=== PATIENT | male | born 1955 | race Caucasian/White ===

== ENCOUNTER 2016-09-25 05:44 | Outpatient (CLI) | payer MEDICARE, OTHER ==
[~2016-09-25] VITALS: Ht 185.4 cm; Wt 134.8 kg
--- NOTE | ~2016-09-25 | CATH ---
Cardiac Diagnostic + PCI Report Demographics Patient Name ZAIDA Harrell Gender Male Date of 1955 Age 61 year(s) Patient Number [id number] Date of Study 09/25/2016 Visit Number [id number] Room Number G6[address] [place] [id number] Ht 185.42 cm Wt 133.7 kg Referring Augusta Tan MD Primary Physician Physician Performing Efstratiou Secondary Physician Physician Sai Alberto MD Diagnostic Efstr[facility]ou Assisting Physician Physician Sai Alberto MD Interventional Efstratiou Physician Staff Appraiser Physician Sai Alberto MD Findings and Conclusions Diagnostic Findings and Conclusion Severe RCA stenosis corresponding to nuclear defect. 20-40% lesions in remaining coronaries. Diagnostic Recommendations PCI to RCA. Interventional Findings and Conclusion Successful BANDAR to Mid RCA. Interventional Recommendations DAPT. Smoking cessation. Increase Statin intensity. Procedure Description The patient was brought to the diagnostic cardiac catheterization-EP laboratory in the fasting, non-sedated state. Informed consent was obtained in the written and verbal form after the risks and benefits were explained. The patient had no further questions and agreed to proceed. The planned puncture-incision site(s) were shaved and prepped with ChloraPrep and draped in the usual sterile manner. Conscious sedation, supplemental oxygen, and pain control medications were delivered by a registered nurse under physician guidance. Surface ECG rhythm, blood pressure measurement, and pulse oximetry were monitored throughout the procedure. Arterial access. The access site was infiltrated with lidocaine. The vessel was entered with the Seldinger technique. A sheath was advanced into the vessel and used for catheter placement. Selective left coronary angiography. A catheter was advanced into the left coronary vessel ostium under Fluoroscopic guidance. Contrast was injected by hand. Images were obtained in multiple projections. Selective right coronary angiography. A catheter was advanced into the right coronary vessel ostium under fluoroscopic guidance. Contrast was injected by hand. Images were obtained in multiple projections. Left heart catheterization. A catheter was advanced across the aortic valve to the left ventricle under fluoroscopic guidance. Resting hemodynamics were obtained. Stent Placement: A guiding catheter was used to intubate the vessel. A 0.14 wire was used to cross the lesion. A Drug Eluting Stent was placed. Post placement angiograms were performed. Arterial artery hemostasis was achieved. The patient was transferred to a regular nursing floor via cart accompanied by a nurse. The patient left the laboratory in stable condition. Diagnostic Cath Status: Elective Interventional Cath Status: Urgent Procedure Procedure Type Diagnostic procedure:Angiography:, Coronary Angios /[facility] PCI procedure:Drug Eluting Coronary Stent:, RCA Indications: Positive nuclear scan, Diabetes and Hypertension. The procedure was explained in detail to the patient. Risks, complications and alternative treatments were reviewed. Written consent was obtained. Medications Reviewed with Patient prior to Procedure. Angiographic Findings Dominance: Mixed Cardiac Arteries and Lesion Findings LMCA: Normal (0% Stenosis).patent LAD: Lesion on Mid LAD: Mid subsection.20% stenosis . Lesion on 1st Dia% stenosis . LCx: Lesion on 1st Ob Nerissa% stenosis . RCA: Lesion on Mid RCA: Mid subsection.80% stenosis 20 mm length reduced to 0%. Pre procedure ESTRELLA III flow was noted. Post Procedure ESTRELLA III flow was present. The guidewire cross was successful.The lesion was diagnosed as a moderate risk lesion.Culprit lesion. Treatment results:Interventional treatment was successful. Devices used - Whisper Wire .014 x 190. Number of passes: 1. - Emerge Balloon 3.0 x 15. 1 inflation(s) to a max pressure of: 14 irene. - Promus Premier 3.5 x 20 Stent. 1 inflation(s) to a max pressure of: 20 irene. Lesion on R PDA: 20% stenosis . Coronary Tree Procedure Data Procedure Date Date: 09/25/2016Start: 08:55 AMEnd: 09:44 AM Entry Locations - Retrograde Percutaneous access was performed through the Right Radial artery (Primary location). A 6 Fr sheath was inserted. Hemostasis was successfully obtained using Mechanical Compression. Closure Comments: Radial band placed by Tabatha Mayorga. 18 mls of air in band.. Procedure Medications Order and Administration + + +--------+-------+ !Time !Medication !Dosage !Route ! + + +--------+-------+ !09/25/2016 !Fentanyl !50 mcg !I.V. ! !08:41 AM ! ! ! ! + + +--------+-------+ 09/25/2016 !Versed !1 mg !I.V. ! !08:52 AM ! ! ! ! + + +--------+-------09/25/2016 !Oxygen !2 l/min !NC ! !08:56 AM ! ! ! ! + + +--------+-------09/25/2016 !PAE Radial Cocktail: Heparin 5000 units, ! !I.A. ! !08:58 AM !Nitroglycerin 200mcg, Verapamil 3 mg ! ! ! ! !(ACC_3) ! ! ! + + +--------+-------+ 09/25/2016 !Oxygen !4 l/min !NC ! !09:03 AM ! ! ! ! + + +--------+-------+ 09/25/2016 !Heparin (ACC_3) !3000 !I.V. ! !09:07 AM ! !units ! ! + + +--------+-------+ 09/25/2016 !Integrilin (ACC_7) !20 mg !I.C. ! !09:16 AM ! ! ! ! + + +--------+-------+ 09/25/2016 !Heparin (ACC_3) !2000 !I.V. ! !09:17 AM ! !units ! ! + + +--------+-------09/25/2016 !Oxygen ! !NC ! !09:40 AM ! ! ! ! + + +--------+-------09/25/2016 !Brilinta (Ticagrelor) (ACC_20) !180 mg !P.O. ! !09:35 AM ! ! ! ! + + +--------+-------+ Devices Used - A6 Fr. BS JR 4 Diag. Catheterwas used for:Right coronary angiography. - A6 Fr. BS JL 3.5 Diag. Catheterwas used for:Left coronary angiography. - A6 Fr. HS Guide Catheterwas used for:RCA Intervention. Contrast Material - Isovue 211118 ml Fluoroscopy Time: Diagnostic: 12:18 minutes. Total: 12:18 minutes. Fluoroscopy Dose: Diagnostic: 1832 mGy. Total: 1832 mGy. Estimated Blood Loss: 10 ml. Additional ACC PCI Information PCI Indication:Other. Medical History Performed Procedures and Imaging Results - Stress testing with SPECT MPIwas performed. Results were: Positive. Risk/Extent of ischemia was: Intermediate risk. History of Disease + + + + !Diagnosis !Date !Comments ! + + + + !Hypertension ! ! ! + + + + !Diabetes ! ! ! + + + + Allergies - No known allergies. Risk Factors The patient risk factors include:peripheral arterial disease, hypercholesterolemia, hypertension, family history of premature CAD, insulin-treated diabetes mellitus, last creatinine: 0.6 mg/dl, creatinine clearance: 241.4 ml/min, dyslipidemia and Current/Recent(w/in 1 year) tobacco use. Admission Data Admission Date: 09/25/2016 Admission Time: 05:44 AM Admit Source: Other Insurance Payors: Medicare. Admission Medications + +------+------+ + + + + !Medication !Dosage!Times !Last !Last !Administered !Comments ! ! ! !Per !Delivery !Delivery ! ! ! ! ! !Day !Date !Time ! ! ! + +------+------+ + + + + !Aspirin ! ! ! ! !Yes ! ! !(any) ! ! ! ! ! ! ! + +------+------+ + + + + !Beta Corbin! ! ! ! !Yes ! ! !(any) ! ! ! ! ! ! ! + +------+------+ + + + + !Statin (any)! ! ! ! !Yes ! ! + +------+------+ + + + + !OSMIN ! ! ! ! !Yes ! ! !Inhibitor ! ! ! ! ! ! ! !(any) ! ! ! ! ! ! ! + +------+------+ + + + + Clinical Evaluation Leading to Procedure - There were no CAD presentation symptoms. - Anti-anginal medications were prescribed during the past two weeks. The medications are: Beta Blockers and Ca channel Blockers. - The reason for the patient's vp lab visit is pre-operative evaluation before non-cardiac surgery. Snapshots Hemodynamics Condition: Rest O2 Consumption: Estimated: 298.67Heart Rate: 71 bpm Pressures (mmHg) +-----+ + !Site !Pressure ! +-----+ + !AO !124/66 (90) ! +-----+ + !LV !136/8 ,15 ! +-----+ + !LV !137/8 ,16 ! +-----+ + !AO !133/67 (92) ! +-----+ + !LV !137/8 ,15 ! +-----+ + Valve Gradients and Areas + +---------+---------+---------+ +---------+ + !Valve !Peak !Mean !Area !Index !Flow !Source ! + +---------+---------+---------+ +---------+ + !Aortic !6 !7 ! ! ! ! ! + +---------+---------+---------+ +---------+ + !Aortic !6 !7 ! ! ! ! ! + +---------+---------+---------+ +---------+ + Shunts Oxygen Values O2 Capacity 227.12 O2 Consumption 298.67 Discharge Data Discharge Date: 09/26/2016 Hospital Status: Outpatient Signatures dtt: Cristofer Zuniga dtd: 09/25/16 0855 Physician Self Edit
[~2016-09-25 05:44] MED LIST: AMPICILLIN TRI500 MG PO; ASPIRIN EC81 MG PO; BYSTOLIC10 MG PO; CHERRY PO; DILAUDID 4MG4 MG PO; GLUCOPHAGE500 MG PO; HYDRODIURIL25 MG PO; MODAFINIL100 MG PO; NORVASC5 MG PO; OXYGEN M-15 INH; PRINIVIL (ZESTRI5 MG PO; TAB-A-VITE1 EACH PO; TOPROL XL 5050 MG PO; ZOCOR40 MG PO
[2016-09-25 06:45] LABS: BASOPHIL % 0.4 %; EOSINOPHIL # 0.1 K/uL (0.0-0.5); HEMATOCRIT 50.4 % (37.0-53.0); HEMOGLOBIN 16.7 g/dL (11.0-16.0); IMMATURE GRANULOCYTE % 0.2 %; LYMPHOCYTE # 1.7 K/uL (0.8-4.0); LYMPHOCYTE % 31.4 %; MCH 26.9 pg (27.0-34.0); MCHC 33.1 gm/dL (32.0-36.5); MCV 81.3 fl (83.0-98.0); MONOCYTE # 0.6 K/uL (0.0-1.0); MONOCYTE % 10.6 %; MPV 8.9 fl (9.4-12.4); NEUTROPHIL % 55.4 %; NRBC % 0 /100WBC (0-0.00); PLATELET COUNT 169 K/uL (150-450); RDW-CV 16.2 % (11.9-14.6); WBC 5.4 K/uL (4.0-11.0)
[2016-09-25 06:56] LABS: INR - (THERAPEUTIC) 1.07 (0.92-1.07); PROTIME 11.2 SECONDS (9.8-11.4); PTT 29 SECONDS (25-32)
[2016-09-25 07:02] LABS: ALK PHOS 59 IU/L (33-138); ALT 24 IU/L (12-78); ANION GAP 14.1 (10.0-19.0); AST 19 IU/L (10-40); BLOOD UREA NITROGEN 7 mg/dL (6-24); CALCIUM 8.1 mg/dL (8.5-10.5); CHLORIDE 94 mMol/L (96-110); CO2 24 mMol/L (22-32); CREATININE 0.6 mg/dL (0.6-1.3); POTASSIUM 4.1 mMol/L (3.7-5.1); SODIUM 128 mMol/L (135-145); TOTAL BILIRUBIN 0.4 mg/dL (0.0-1.5); TOTAL PROTEIN 6.7 g/dL (6.0-8.4)
[2016-09-25 07:04] LABS: ESTIMATED GFR (MDRD EQUATION) > 60
[2016-09-25 11:26] LABS: CPK 93 IU/L (35-332)
[2016-09-25 17:29] LABS: CPK 74 IU/L (35-332)
--- NOTE | 2016-09-25 19:11 | NUR ---
Significant Event:Patient has not had any chest pain. R band off at 1710, bandaid and coban to site, is soft, no bleeding. Appetite good. Up to chair. Voiding in large amounts. VSS Follow up:Home tomorrow
[2016-09-25 23:22] LABS: CPK 65 IU/L (35-332)
--- NOTE | 2016-09-26 04:10 | NUR ---
Patient A/Ox3. VSS on RA. IV saline locked. Stent to RCA. NO complaints of any pain. Rt radial bandaid, site soft. Up standby assist. Cardiac Enzymes (-). Home today.
[2016-09-26 05:17] LABS: CPK 60 IU/L (35-332)
[2016-09-26 05:22] LABS: ALK PHOS 60 IU/L (33-138); ALT 24 IU/L (12-78); ANION GAP 12.3 (10.0-19.0); AST 18 IU/L (10-40); BLOOD UREA NITROGEN 9 mg/dL (6-24); CALCIUM 8.2 mg/dL (8.5-10.5); CHLORIDE 100 mMol/L (96-110); CO2 26 mMol/L (22-32); CREATININE 0.7 mg/dL (0.6-1.3); ESTIMATED GFR (MDRD EQUATION) > 60; POTASSIUM 4.3 mMol/L (3.7-5.1); SODIUM 134 mMol/L (135-145); TOTAL PROTEIN 6.7 g/dL (6.0-8.4)
[2016-09-26 05:26] LABS: TOTAL BILIRUBIN 0.7 mg/dL (0.0-1.5)
[2016-09-26] MEDS ORDERED: LIPITOR80 MG PO (10:14)
[2016-09-26] MEDS ORDERED: BRILINTA90 MG PO (10:21)
--- NOTE | 2016-09-26 10:57 | NUR ---
Patient dissmissed to home via private auto, walked out to vehicle by RN and SN. Passive with discharge education, dismissal instructions, follow-up appointments, and new medications. Prescriptions given to patient. VSS. Denies pain. Patient unwilling to wait for MD prior to discharge, Daniella Ziegler APRN did see patient prior to dismissal.
== END 2016-09-26 10:50 | disposition disaster alternative care site (69) ==
LOC: GPCU 05:44 → GPOC 05:44 → GPCU 09:45 → GPOC 11:00
PROVIDERS: Internal Medicine Cardiovascular Disease
DX: I25.10 Atherosclerotic heart disease of native coronary artery without angina pectoris (principal); I10 Essential (primary) hypertension; I71.4 Abdominal aortic aneurysm, without rupture; E78.5 Hyperlipidemia, unspecified; E11.9 Type 2 diabetes mellitus without complications; Z79.84 Long term (current) use of oral hypoglycemic drugs; Z82.49 Family history of ischemic heart disease and other diseases of the circulatory system; Z87.891 Personal history of nicotine dependence; R07.9 Chest pain, unspecified
CPT/HCPCS: C1725; C1769; C1874; C1887; C1894; C9600; J1327; J1644; J2001; J2250; J3010; J7030